=== PATIENT | female | born 1995 | race Caucasian/White ===

== ENCOUNTER 2018-07-01 23:40 | Emergency (ER) | payer OTHER ==
[~2018-07-01] VITALS: Ht 162.6 cm; Wt 88.5 kg
[2018-07-01 23:45] VITALS: BP 116/81
[2018-07-02] MEDS ORDERED: ONDANSETRON 4 MG ODT PO ONE (01:35)
[2018-07-02 02:00] VITALS: BP 116/81
== END 2018-07-02 02:00 | disposition home or self-care (01) ==
LOC: MED 23:40
DX: O21.0 Mild hyperemesis gravidarum (principal); Z3A.01 Less than 8 weeks gestation of pregnancy
CPT/HCPCS: 81002; 81025; 99283; S0119

== ENCOUNTER 2020-07-01 00:39 | Emergency (ER) | payer MEDICAID, OTHER ==
[~2020-07-01] VITALS: Ht 162.6 cm; Wt 67.6 kg
[2020-07-01 00:41] VITALS: BP 117/80
[2020-07-01 01:48] VITALS: BP 117/80
== END 2020-07-01 01:48 | disposition home or self-care (01) ==
LOC: MED 00:39
DX: H10.33 Unspecified acute conjunctivitis, bilateral (principal)
CPT/HCPCS: 99283

== ENCOUNTER 2022-07-31 14:53 | Emergency (ER) | payer MEDICAID ==
--- NOTE | 2022-07-31 15:20 | NUR ---
name called, no answer at this time
== END 2022-07-31 15:20 | disposition left against medical advice (07) ==
LOC: MED 14:53
DX: R53.1 Weakness (principal); Z53.21 Procedure and treatment not carried out due to patient leaving prior to being seen by health care provider

== ENCOUNTER 2022-07-31 15:48 | Emergency (ER) | payer MEDICAID ==
[~2022-07-31] VITALS: Ht 162.6 cm; Wt 90.7 kg
--- NOTE | 2022-07-31 15:50 | NUR ---
pt swabbed for covid(roland) and flu. walked and handed to lab
[2022-07-31 15:52] VITALS: BP 120/70
--- NOTE | 2022-07-31 16:40 | NUR ---
call no answer
--- NOTE | 2022-07-31 17:21 | NUR ---
call no answer
== END 2022-07-31 17:21 | disposition left against medical advice (07) ==
LOC: MED 15:48
DX: R30.0 Dysuria (principal); Z53.21 Procedure and treatment not carried out due to patient leaving prior to being seen by health care provider